=== PATIENT | male | born 1980 | race Caucasian/White ===

== ENCOUNTER 2022-07-28 14:45 | Inpatient (IN) ==
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
[2022-07-28] MEDS ORDERED: HYDROmorphone INJ 1 MG/ML SYRINGE IM STA (16:20)
[2022-07-28] MEDS ORDERED: HYDROmorphone INJ 1 MG/ML SYRINGE IV STA ×2 (16:34→18:26)
[2022-07-28 16:57] LABS: Basophils # (auto) 0.04 K/uL (0-0.2); Basophils % (auto) 0.4 %; Eosinophils # (auto) 0.03 K/uL (0-0.50); Eosinophils % (auto) 0.3 %; Hematocrit (blood only) 43.5 % (40.1-51.0); Hemoglobin 15.2 g/dl (14.0-18.0); Immature Granulocytes % (auto) 0.9 %; Lymphocytes % (auto) 9.8 %; Mean Corpuscular Hemoglobin 30.3 pg (25.0-34.0); Mean Corpuscular Hgb Conc 34.9 g/dL (32.0-36.0); Mean Corpuscular Volume 86.7 fL (80.0-100.0); Mean Platelet Volume 9.4 fL (9.4-12.4); Monocytes # (auto) 1.35 K/uL (0.24-0.82); Monocytes % (auto) 12.1 %; Neutrophils # (auto) 8.57 K/uL (1.4-6.5); Neutrophils % (auto) 76.5 %; Platelet Count 254 K/uL (130-400); RDW Coefficient of Variation 12.6 % (11.5-14.5); RDW Standard Deviation 40.1 fL (36.4-46.3); Red Blood Count 5.02 M/uL (4.63-6.08); White Blood Count 11.19 K/ul (4.8-10.8)
--- NOTE | 2022-07-28 17:17 | CT Scan Report ---
CERVICAL SPINE CT CT DOSE: 457.30 mGycm HISTORY: kicked by horse, upper cervical pain with extension TECHNIQUE: Multiaxial CT images of the cervical spine were performed and reformatted in the sagittal and coronal plane without the use of contrast. A dose lowering technique was utilized adhering to th e principles of ALARA. COMPARISON: None. FINDINGS: No fractures. No subluxation. Prevertebral soft tissues and the C1-C2 interval are intact. No pneumothorax. Subcentimeter nodular densities at the left lung may apex favors scarring. IMPRESSION: No fractures within the cervical spine. ACT 112: Negative or not required by law. Electronically signed by: Ricky Mcneill M.D. 07/28/2022 5:16 PM
[2022-07-28 17:20] LABS: Albumin Globulin Ratio 1.1 (0.9-2); Albumin Level 4.1 gm/dl (3.4-5.0); BUN Creatinine Ratio 18.2 (10-20); Bilirubin,Total 0.8 mg/dl (0.2-1.0); Calcium 9.1 mg/dl (8.5-10.1); Creatinine Clr Calc Pharmacy 82.6 ml/min; Est GFR (African American) 96.1 ml/min; Est GFR (Non-African American) 82.9 ml/min; Globulin 3.8 gm/dl (2.5-4.0); Potassium 3.8 mmol/L (3.5-5.1); Total Protein 7.9 gm/dl (6.0-8.3)
--- NOTE | 2022-07-28 17:25 | CT Scan Report ---
MAXILLOFACIAL CT CT DOSE: 711.41 mGycm HISTORY: kicked by horse. L jaw, swelling under tongue TECHNIQUE: Multiaxial CT images of the maxillofacial region were performed and reformatted in the cor onal plane without the use of contrast. A dose lowering technique was utilized adhering to the princ iplQian. COMPARISON: None. FINDINGS: There are 2 adjacent nondisplaced fractures within the anterior mandible best seen on image 82. Extensive periodontal disease is noted. Moderate mucosal thickening within the right frontal sin us and ethmoid air cells. The visualized cervical spine, skull base, pterygoid plates, nasal bones, l armani papyracea, orbital floors, and zygomatic arches are intact. The orbits are unremarkable. Left m andibular soft tissue swelling with a probable small soft tissue laceration. No soft tissue hematoma identified. There is also mild asymmetric soft tissue swelling within the left nasal/maxillary region . This could be due to an underlying postoperative changes. Prior internal fixation of an old, healed left maxillary anterior wall fracture. IMPRESSION: 1. Nondisplaced fractures near the apex of the mandible. 2. Old posttraumatic/postoperative changes at the anterior wall of the left maxillary sinus. 4. Extensive periodontal disease is noted. ACT 112: Negative or not required by law. Electronically signed by: Ricky Mcneill M.D. 07/28/2022 5:24 PM
[2022-07-28] MEDS ORDERED: AMPICILLIN/SULBACTAM SOD 3,000 MG in 0.9 % SODIUM CHLORIDE 100 ML IV STA (18:57)
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
[2022-07-28] MEDS ORDERED: CEFEPIME 2,000 MG in SYRINGE 0 ML IV STA (19:16)
[2022-07-28] MEDS ORDERED: metroNIDAZOLE 500 MG/100 ML BAG IV STA (19:19)
[2022-07-28] MEDS ORDERED: DIPHTHERIA/TETANUS/PERTUSSIS 0.5 ML SYR/VIAL IM ONE (19:50)
[2022-07-28] MEDS ORDERED: HYDROmorphone INJ 0.5 MG/0.5 ML SYR IV STA (19:53)
[2022-07-28] MEDS ORDERED: ACETAMINOPHEN 1,000 MG/100 ML VIAL IV STA (19:53)
[2022-07-28] MEDS ORDERED: ONDANSETRON INJ 2 MG/ML 2 ML VIAL IV PRN (22:00)
[2022-07-28] MEDS ORDERED: HYDROmorphone INJ 0.5 MG/0.5 ML SYR IV PRN (22:00)
[2022-07-28] MEDS ORDERED: D5W AND 1/2NSS 1,000 ML IV SCH (22:00)
[2022-07-28] MEDS: HYDROmorphone INJ 0.5 MG/0.5 ML SYR IV PRN (22:27)
[2022-07-29] MEDS: HYDROmorphone INJ 0.5 MG/0.5 ML SYR IV PRN ×3 (00:38→05:46)
[2022-07-29] MEDS ORDERED: KETOROLAC TROMETHAMINE 15 MG/ML VIAL IV ONE (02:15)
[2022-07-29] MEDS ORDERED: MoRPHine SULFATE 4 MG/ML 1 ML CARP\\VIAL IV STA (04:03)
[2022-07-29] MEDS: metroNIDAZOLE 500 MG/100 ML BAG IV SCH ×3 (04:38→20:53)
[2022-07-29] MEDS ORDERED: NALOXONE HCL 0.4 MG/1 ML VIAL/CARP IV PRN (05:52)
--- NOTE | 2022-07-29 06:02 | Communication Note ---
Date of Service: July 29, 2022 Was in frequent contact with patient's RN overnight regarding pain control. Unfortunately, despite nearly a total of Dilaudid 4.5mg, morphine 4mg, Toradol 15mg, and APAP 1000mg q8h JAILENE, he continues to have severe, 8-9/10 pain. The pain has not changed in character and is still primarily on the left side of his jaw. While a little groggy, he has remained alert throughout the night without changes in respiratory status. Went to see patient at 0545 given continued, ongoing pain. He reports feeling terrible and not getting any sleep. No new physical exam findings compared to previous. Given the extent of his pain despite minimal improvement and limited options without PO, will transition onto a Dilaudid RN LVN pump - 0.3mg q15m without continuous dosing. He will have EtCO2 monitoring per protocol and is also on telemetry for cardiac monitoring. Discussed with attending physician. Orders entered. Plan d/w RN. Resident Activity Tracking Resident Involvement: Resident Care Provided Care Provided: Adult [facility]
[2022-07-29] MEDS: ACETAMINOPHEN 1,000 MG/100 ML VIAL IV SCH ×3 (06:11→22:33)
[2022-07-29] MEDS: HYDROmorphone PCA 30 MG/30 ML IV PRN ×2 (07:06→21:09)
[2022-07-29] MEDS: SODIUM CHLORIDE 0.9% 1000ML 1,000 ML IV SCH (07:10)
--- NOTE | 2022-07-29 07:10 | Hospitalist Progress Note ---
Date of Service July 29, 2022 Assessment & Plan (1) Facial injury: Plan: 42 yo male PMHx of reported L-sided facial fracture s/p plate placement >10 years ago who presented to [facility] for evaluation of facial pain secondary to being struck in the face by a horse, subsequently found to have L-sided mandibular fractures on CT. There is no evidence of cervical spine injury or neurologic impairment at present, and his airway on exam is patent. Mandibular Fracture secondary to Trauma Secondary to being struck in the face by a horse, with associated brief LOC two days ago. No evidence of cervical spine impairment on imaging or LIBRARY CIRCULATION TECHNICIAN defects on exam. Airway is patent. CT of the face demonstrated nondisplaced fractures near the apex of the mandible, old posttraumatic/postoperative changes at the anterior wall of the left maxillary sinus, and extensive perioral dental disease. NPO D/c cefepime. Abx ppx with Rocephin and flagyl. cont. D5 half-normal saline for maintenance Pain control: Scheduled Tylenol, PARTS SALES MANAGER pump Oral & maxillary surgery consulted: Develop treatment plan which will include extraction of many teeth and open reduction of the mandibular fractures with bilateral bone plates. Future dentures. Set up with general anesthesia in hospital due to complexity of the procedure once the swelling has subsided. (2) Struck by horse, initial encounter: Plan: As above Plan Code: Full code Diet: NPO, D5 half-normal saline Prophylaxis: SCDs Dispo: med tele Admission and Anticipated Discharge Date Admission Date: July 28, 2022 Supervising Physician Co-Signing Physician Notes Attending attestation Pt seen and examined in concert with Dr. Cornejo. In agreement with the documented findings as noted in the resident documentation with any exceptions or additions as noted here. Ongoing jaw pain with traumatic injury and fracture. VS, nursing notes, labs, imaging reviewed. On examination, S1/S2 nl RRR no MCG. CTAB. Abd NT/ND BS+ve Mandibular fx in the setting of trauma - OMFS - impending surgical correction. Continue pain control w/ IV hydromorphone PARTS SALES MANAGER, IVF. Empiric abx as noted prior to surgery for adjustment following as required. Else see resident documentation as noted. Subjective Seen at bedside this morning. Face pain decently controlled on PARTS SALES MANAGER. Denies chest pain, sob, abd pain, N/V. Review of Systems Review of Systems: All systems reviewed & are unremarkable except as noted in HPI & below Physical Exam Physical Exam: General: alert, oriented, and appears in no acute distress. HEENT: NCAT. Sclera are white, anicteric, and without injection. Exam of the left side of the face does reveal significant edema over the left maxilla e xtending down into the left side of his jaw. There is lip swelling appreciated. There is no tongue swelling or airway crowding appreciated. Numerous caries are appreciated throughout the mouth. Neck: supple, no appreciable JVD. Palpation down the cervical spine does not reveal any point tenderness. No paracervical tenderness. Neck range of motion is grossly intact. Cardiac: RRR. S1 and S2 present with no murmurs, rubs, or gallops. Pulmonary: Good respiratory effort with symmetric expansion of the chest. No use of accessory muscles. CTAB. No crackles or wheezes. Abdominal: Normoactive bowel sounds. Abdomen was soft, nondistended, and non- tender to palpation. Extremities: Upper and lower extremities are warm and well perfused. No peripheral edema in the lower extremities bilaterally Neuro: no focal deficits Psych: Behavior is cooperative and appropriate. Affect is WNL. Insight is appropriate. Results & Data Results & Data ([facility]) Vital Signs (Past 12 Hours) Vital Signs Temp Pulse Pulse Resp BP BP Pulse Ox 07/29/22 03:38 36.7 C 81 18 110/71 98 07/29/22 00:10 68 07/28/22 23:02 36.2 C L 73 16 127/85 100 07/28/22 20:00 82 18 126/72 99 07/28/22 19:35 82 18 126/72 99 O2 Del Method 07/29/22 03:38 Room Air 07/29/22 00:10 07/28/22 23:02 Room Air 07/28/22 20:00 Room Air 07/28/22 19:35 Room Air Laboratory Results 07/29/22 07/29/22 07/28/22 Range/Units 08:30 08:30 19:12 WBC 9.95 (4.8-10.8) K/ul RBC 4.42 L (4.63-6.08) M/uL Hgb 13.3 L (14.0-18.0) g/dl Hct 39.0 L (40.1-51.0) % MCV 88.2 (80.0-100.0) fL MCH 30.1 (25.0-34.0) pg MCHC 34.1 (32.0-36.0) g/dL RDW Std Deviation 39.7 (36.4-46.3) fL RDW Coeff of Fadia 12.3 (11.5-14.5) % Plt Count 227 (130-400) K/uL MPV 9.2 L (9.4-12.4) fL Immature Gran % (Auto) 0.9 % Neut % (Auto) 77.3 % Lymph % (Auto) 10.3 % [place] % (Auto) 10.5 % Eos % (Auto) 0.7 % Baso % (Auto) 0.3 % Neut # (Auto) 7.70 H (1.4-6.5) K/uL Lymph # (Auto) 1.02 L (1.2-3.4) K/uL [place] # (Auto) 1.04 H (0.24-0.82) K/uL Eos # (Auto) 0.07 (0-0.50) K/uL Baso # (Auto) 0.03 (0-0.2) K/uL Immature Gran # (Auto) 0.09 H (0.00-0.02) K/uL Sodium 134 L (136-145) mmol/L Potassium 3.8 (3.5-5.1) mmol/L Chloride 101 (98-107) mmol/L Carbon Dioxide 27 (21-32) mmol/L Anion Gap 6 (3-11) BUN 17 (6-23) mg/dl Creatinine 0.89 (0.6-1.4) mg/dl Est Cr Clr Drug Dosing 102.1 ml/min Est GFR ( Amer) 123.1 ml/min Est GFR (Non-Af Amer) 106.2 ml/min BUN/Creatinine Ratio 19.1 (10-20) Glucose 116 H (70-99(Fasting)) mg/dl Calcium 8.5 (8.5-10.1) mg/dl Total Bilirubin 0.8 (0.2-1.0) mg/dl AST 16 (13-39) U/L ALT 20 (7-52) U/L Alkaline Phosphatase 71 (34-104) U/L Total Protein 6.8 (6.0-8.3) gm/dl Albumin 3.4 (3.4-5.0) gm/dl Globulin 3.4 (2.5-4.0) gm/dl Albumin/Globulin Ratio 1.0 (0.9-2) SARS-CoV-2, RNA, NAAT NEGATIVE (NEGATIVE) 07/28/22 Range/Units 16:32 WBC (4.8-10.8) K/ul RBC (4.63-6.08) M/uL Hgb (14.0-18.0) g/dl Hct (40.1-51.0) % MCV (80.0-100.0) fL MCH (25.0-34.0) pg MCHC (32.0-36.0) g/dL RDW Std Deviation (36.4-46.3) fL RDW Coeff of Fadia (11.5-14.5) % Plt Count (130-400) K/uL MPV (9.4-12.4) fL Immature Gran % (Auto) % Neut % (Auto) % Lymph % (Auto) % [place] % (Auto) % Eos % (Auto) % Baso % (Auto) % Neut # (Auto) (1.4-6.5) K/uL Lymph # (Auto) (1.2-3.4) K/uL [place] # (Auto) (0.24-0.82) K/uL Eos # (Auto) (0-0.50) K/uL Baso # (Auto) (0-0.2) K/uL Immature Gran # (Auto) (0.00-0.02) K/uL Sodium 136 (136-145) mmol/L Potassium 3.8 (3.5-5.1) mmol/L Chloride 101 (98-107) mmol/L Carbon Dioxide 25 (21-32) mmol/L Anion Gap 10 (3-11) BUN 20 (6-23) mg/dl Creatinine 1.10 (0.6-1.4) mg/dl Est Cr Clr Drug Dosing 82.6 ml/min Est GFR ( Amer) 96.1 ml/min Est GFR (Non-Af Amer) 82.9 ml/min BUN/Creatinine Ratio 18.2 (10-20) Glucose 118 H (70-99(Fasting)) mg/dl Calcium 9.1 (8.5-10.1) mg/dl Total Bilirubin 0.8 (0.2-1.0) mg/dl AST 22 (13-39) U/L ALT 27 (7-52) U/L Alkaline Phosphatase 82 (34-104) U/L Total Protein 7.9 (6.0-8.3) gm/dl Albumin 4.1 (3.4-5.0) gm/dl Globulin 3.8 (2.5-4.0) gm/dl Albumin/Globulin Ratio 1.1 (0.9-2) SARS-CoV-2, RNA, NAAT (NEGATIVE) Resident Activity Tracking Resident Involvement: Resident Care Provided Care Provided: Adult Hospital Medicine
[2022-07-29] MEDS ORDERED: CEFEPIME 2,000 MG in SYRINGE 0 ML IV SCH (08:00)
--- NOTE | 2022-07-29 08:13 | Oral/Maxillofacial Consult ---
Date of Consultation July 29, 2022 Assessment & Plan (1) Struck by horse, initial encounter: (2) Left facial swelling: (3) Encounter for pre-operative examination: (4) Bilateral open fracture of mandible: (5) Fractured tooth due to trauma without complication: (6) Laceration of face, complicated: History of Present Illness Attending Physician: Levi Nguyen MD History of Present Illness Oral Maxillofacial Surgery Exam--Emergency exam Jaw fracture Present Complaint: Sustained mandibular fractures (anterior mandible ) after being stepped on by a horse with worsening pain over the previous 2 days. I suggested and recommended for IV antibiotics and admission and anticipate surgical intervention in the next few days to allow swelling to subside. Very painful to move jaw secondary to the fractures. Despite the non displaced nature of the fractures the bone move clinically with swallowing and talking causing extreme pain. Patient seen at bedside, reports he has 7/10 pain in the face and felt the brake/pop in 2 places when the injury occurred. 2 days ago. C-spine CT reviewed, patient does not have any tenderness in the posterior neck/spine. No history of heart disease/DM/pulmonary disease. Heart rate regular, lungs are clear, patient is not wheezing, is guarding airway, and is out without airway swelling or uvular deflection. Penicillin allergic with unclear rxn per pt, will treat with cefepime/Flagyl IV. N.p.o., fluids. Oral maxillofacial surgery consulted. Oral Exam: Finding Very poor dentition with many teeth fractured from the accident, tender gingival tissue with deep pocket formation. Teeth are in an abnormal position, fractured and non restorable and removal is clinical indicated. Imaging: MAXILLOFACIAL CT HISTORY: kicked by horse. L jaw, swelling under tongue FINDINGS: There are 2 adjacent nondisplaced fractures within the anterior mandible best seen on image 82. Extensive periodontal disease is noted. Moderate mucosal thickening within the right frontal sinus and ethmoid air cells. The visualized cervical spine, skull base, pterygoid plates, nasal bones, lamina papyracea, orbital floors, and zygomatic arches are intact. The orbits are unremarkable. Left mandibular soft tissue swelling with a probable small soft tissue laceration. No soft tissue hematoma identified. There is also mild asymmetric soft tissue swelling within the left nasal/maxillary region. This could be due to an underlying postoperative changes. Prior internal fixation of an old, healed left maxillary anterior wall fracture. IMPRESSION: 1. Nondisplaced fractures near the apex of the mandible. 2. Old posttraumatic/postoperative changes at the anterior wall of the left maxillary sinus. 4. Extensive periodontal disease is noted. Soft tissue: floor of the mouth is swollen from the trauma tongue, hard/soft palate, posterior pharyngeal area all with in normal limits, Grossly swollen soft tissue and anterior lower jaw area Oral Care: Overall oral care is very poor all teeth are fractured and loose as a result of the accident the upper teeth 5-12 and lower 22-29 are fractured and are non restorable Occlusion: given the many fractured and decayed teeth with the present trauma many if not all of the teeth need to be extracted to prevent any infection given the opened nature of the bilateral anterior mandibular fracture. TMJ exam: Due to trauma and swelling can not open mouth to evaluate the TMJ-severe pain on movement Periodontal exam: Significant evidence of advanced periodontal pathology. Head/Neck exam: Neck is supple, FROM, Able to extend and flex neck w/o difficulty, no masses, no abnormalities, no airway issues, no evidence of sleep apnea. Treatment Plan: Develop treatment plan which will include extraction of many teeth and open reduction of the mandibular fractures with bilateral bone plates Future dentures Set up with general anesthesia in hospital due to complexity of the procedure once the swelling has subsided. I reviewed the treatment plan and consent with the patient. Understanding was expressed. Time was given for questions regarding the surgery, risks and post op care. Discussed alternative to treatment--procedure as planned, Do not do surgery The following teeth are decayed and fractured and removal is indicated KING:all remaining teeth--given difficulty to exam I will make final judgement at the time of surgery Risks discussed: Bleeding,Pain,swelling,infection, dry socket, delayed healing, nerve injury to face,lips,tongue,chin area which could be permanent (rare).Malunion, rejection of the bone plates, scaring, nerve injury, numbness to lower lip, TMJ, jaw stiffness, change in bite (rare), ear pain (referred). Sinus problems like fistula or infection. Need to leave a small root fragment in place to avoid injury to nerve or sinus. Relationship of wisdom teeth to nerve/sinus and risk of jaw fracture. Home care reviewed: Follow up care with Dr Ng. diet=[id number] dental. Discussed activity level, driving/work while on Rx pain Meds. Surgery to be set up today in OR on Jul 29 in the afternoon he is NPO Allergies Allergy/AdvReac Type Severity Reaction Status Date / Time Penicillins Allergy Unknown Verified 07/28/22 19:16 Home Medications Medication Instructions Recorded Confirmed Type amoxicillin 875 mg-potassium 1 tab PO Q12H POST OP JAW FRACTURE 07/30/22 Rx clavulanate 125 mg tablet #20 tabs chlorhexidine gluconate 0.12 % 15 ml mucous membrane BID #473 mL 07/30/22 Rx mouthwash (Peridex) hydrocodone 5 mg-acetaminophen 325 1 tab PO Q4H PRN pain #14 tabs 07/30/22 Rx mg tablet Patient History Medical History Periodontal disease Smokes tobacco daily Surgical History Hx of facial fracture repair Social History Smoking Status: Current some day smoker Tobacco Type: Cigarettes Do You Dip or Chew Tobacco: No; Hx Alcohol Use: No Hx Substance Use: No Preferred Language: Bulgarian Communication Ability: Effective Pattern Drum Maker Required: No Beliefs That Will Affect Care: None Current Living Situation: Alone Feels Safe at Home: Yes Safety Concerns: Feels Safe At This Time Assistive Devices: None Results & Data ([facility]) Vital Signs (Past 12 Hours) Vital Signs Temp Pulse Pulse Resp BP BP Pulse Ox 07/29/22 07:00 07/29/22 07:40 36.7 C 82 18 111/65 98 07/29/22 06:52 71 07/29/22 03:38 36.7 C 81 18 110/71 98 07/29/22 00:10 68 07/28/22 23:02 36.2 C L 73 16 127/85 100 O2 Del Method 07/29/22 07:00 Room Air 07/29/22 07:40 Room Air 07/29/22 06:52 07/29/22 03:38 Room Air 07/29/22 00:10 07/28/22 23:02 Room Air PG Care Time/CCT Total # of Minutes Spent Total Time Spent with Patient: Total time spent is greater than 50% in coordination of care (as documented) at patient's floor/unit and/or counseling patient: Coding Level of Care Code 26876 Inpt Consult Level 3 Diagnoses Struck by horse, initial encounter W55.12XA Left facial swelling R22.0 Encounter for pre-operative examination Z01.818 Bilateral open fracture of mandible S02.609B Fractured tooth due to trauma without complication S02.5XXA Laceration of face, complicated S01.81XA
[2022-07-29 08:47] LABS: Basophils # (auto) 0.03 K/uL (0-0.2); Basophils % (auto) 0.3 %; Eosinophils # (auto) 0.07 K/uL (0-0.50); Eosinophils % (auto) 0.7 %; Hemoglobin 13.3 g/dl (14.0-18.0); Immature Granulocytes # (auto) 0.09 K/uL (0.00-0.02); Immature Granulocytes % (auto) 0.9 %; Lymphocytes # (auto) 1.02 K/uL (1.2-3.4); Lymphocytes % (auto) 10.3 %; Mean Corpuscular Hemoglobin 30.1 pg (25.0-34.0); Mean Corpuscular Hgb Conc 34.1 g/dL (32.0-36.0); Mean Corpuscular Volume 88.2 fL (80.0-100.0); Mean Platelet Volume 9.2 fL (9.4-12.4); Monocytes # (auto) 1.04 K/uL (0.24-0.82); Monocytes % (auto) 10.5 %; Neutrophils % (auto) 77.3 %; Platelet Count 227 K/uL (130-400); RDW Coefficient of Variation 12.3 % (11.5-14.5); RDW Standard Deviation 39.7 fL (36.4-46.3); Red Blood Count 4.42 M/uL (4.63-6.08); White Blood Count 9.95 K/ul (4.8-10.8)
[2022-07-29] MEDS ORDERED: DOCUSATE SODIUM 100 MG CAP PO SCH (09:00)
[2022-07-29 09:11] LABS: Albumin Level 3.4 gm/dl (3.4-5.0); BUN Creatinine Ratio 19.1 (10-20); Bilirubin,Total 0.8 mg/dl (0.2-1.0); Calcium 8.5 mg/dl (8.5-10.1); Creatinine Clr Calc Pharmacy 102.1 ml/min; Est GFR (African American) 123.1 ml/min; Est GFR (Non-African American) 106.2 ml/min; Globulin 3.4 gm/dl (2.5-4.0); Potassium 3.8 mmol/L (3.5-5.1); Total Protein 6.8 gm/dl (6.0-8.3)
[2022-07-29] MEDS ORDERED: CHLORHEXIDINE GLUCONATE 0.12% 480 ML MT PRN (10:07)
[2022-07-29] MEDS: cefTRIAXone SODIUM 2,000 MG in DEXTROSE 5% 50 ML IV SCH (10:36)
[2022-07-29] MEDS ORDERED: CHLOROPROCAINE HCL 3% 20 ML VIAL ONE (14:23)
[2022-07-29] MEDS ORDERED: LIDOCAINE 2% JELLY 5 ML TUBE EXT ONE (14:25)
[2022-07-29] MEDS ORDERED: SUGAMMADEX SODIUM 200 MG/2 ML VIAL IV ONE (14:26)
[2022-07-29] MEDS ORDERED: MIDAZOLAM HCL 1 MG/ML 2ML VIAL ONE (14:28)
[2022-07-29] MEDS ORDERED: fentaNYL citrate 100 MCG/2 ML VIAL ONE (14:28)
[2022-07-29] MEDS ORDERED: LIDOCAINE 2%/EPINEPHRINE 1:100,000 20ML INFIL ONE (15:11)
[2022-07-29] MEDS ORDERED: TRIAMCINOLONE ACET 0.1% OINT 15 GM TUBE ONE (15:11)
[2022-07-29] MEDS ORDERED: BUPIVACAINE/EPINEPHRINE 0.5% 1:200,000 1.8 ML CARP ONE (15:11)
[2022-07-29] MEDS ORDERED: PHENYLEPHRINE 100MCG/ML 5ML SYR IV PRN (15:17)
[2022-07-29] MEDS ORDERED: ePHEDrine sulfate 50 MG/ML AMP IV PRN (15:17)
[2022-07-29] MEDS ORDERED: HYDROmorphone INJ 2 MG/ML SYR/VIAL IV PRN (15:17)
[2022-07-29] MEDS ORDERED: MEPERIDINE HCL 25 MG/ML CARP/VIAL IV PRN (15:17)
[2022-07-29] MEDS ORDERED: LABETALOL HCL IV 5 MG/ML 20ML IV PRN (15:17)
[2022-07-29] MEDS ORDERED: ONDANSETRON INJ 2 MG/ML 2 ML VIAL IV PRN (15:17)
[2022-07-29] MEDS ORDERED: ATROPINE SULFATE 0.1 MG/ML 10ML SYR IV PRN (15:17)
--- NOTE | 2022-07-29 15:19 | Anesthesiology Consultation ---
Date of Service July 29, 2022 Assessment & Plan (1) Encounter for pre-operative examination: Chart Review Chart Review: Acceptable Risk for Surgery and Patient NOT seen in Pre Admission Testing Consults Requested none History Surgery Operation Date: 07/29/22 10:50 Proposed Procedures p Open Reduction Lower Jaw Fracture, - Joe R Ng, DMD s Multiple Teeth Extraction - Joe Headley Ng, DMD Height/Weight Height: 5 ft 7 in Weight: 66.224 kg Allergies Allergy/AdvReac Type Severity Reaction Status Date / Time Penicillins Allergy Unknown Verified 07/28/22 19:16 Medications Active Medications Generic Name Dose Route Start Last Admin Trade Name Freq PRN Reason Stop Dose Admin Docusate Sodium 100 mg 07/29/22 09:00 07/29/22 07:53 Docusate Sodium 100 Mg Cap PO 08/12/22 08:59 Not Given BID JAILENE Hydromorphone HCl 30 mg 07/29/22 05:52 07/29/22 07:06 Hydromorphone Cheesemaking Laborer 30 Mg/30 Ml IV 08/12/22 05:51 30 mg PRN PRN Administration PREPARED FOODS SERVICE TEAM MEMBER Pain Titration Protocol Acetaminophen 1,000 mg in 100 mls @ 400 mls/hr 07/29/22 06:00 07/29/22 13:37 Ofirmev IV 08/01/22 05:59 Infused Q8H JAILENE Infusion Metronidazole 500 mg in 100 mls @ 100 mls/hr 07/29/22 04:00 07/29/22 13:18 Flagyl IV 08/05/22 03:59 Infused Q8H JAILENE Infusion Sodium Chloride 1,000 mls @ 15 mls/hr 07/29/22 06:00 07/29/22 07:10 Nss 1000ml IV 08/12/22 05:52 15 mls/hr .Q24H JAILENE Administration Ceftriaxone Sodium 2,000 mg/ 70 mls @ 100 mls/hr 07/29/22 10:15 07/29/22 11:24 Dextrose IV 08/05/22 10:14 Infused DAILY JAILENE Infusion Protocol NPO Date Last Intake of Fluids: 07/28/22 Time Last Intake of Fluids: 19:00 Date Last Intake of Solids: 07/26/22 Time Last Intake of Solids: 13:00 Past Medical History Medical History Periodontal disease Smokes tobacco daily Past Surgical History Surgical History Hx of facial fracture repair Social History Smoking Status: Current some day smoker tobacco type: cigarettes Do You Dip or Chew Tobacco: No Hx Alcohol Use: No Hx Substance Use: No Physical Exam Vital Signs Last Vital Signs Temp 36.7 C 07/29/22 14:53 Pulse 80 07/29/22 14:53 Resp 18 07/29/22 14:53 BP 122/73 07/29/22 14:53 Pulse Ox 98 07/29/22 14:53 O2 Del Method 07/29/22 14:53 Testing Laboratory Results 07/29/22 08:30 07/29/22 08:[address] CT DOSE: 711.41 mGycm HISTORY: kicked by horse. L jaw, swelling under tongue TECHNIQUE: Multiaxial CT images of the maxillofacial region were performed and reformatted in the coronal plane without the use of contrast. A dose lowering technique was utilized adhering to the principles of ALARA. COMPARISON: None. FINDINGS: There are 2 adjacent nondisplaced fractures within the anterior mandible best seen on image 82. Extensive periodontal disease is noted. Moderate mucosal thickening within the right frontal sinus and ethmoid air cells. The visualized cervical spine, skull base, pterygoid plates, nasal bones, lamina papyracea, orbital floors, and zygomatic arches are intact. The orbits are unremarkable. Left mandibular soft tissue swelling with a probable small soft tissue laceration. No soft tissue hematoma identified. There is also mild asymmetric soft tissue swelling within the left nasal/maxillary region. This could be due to an underlying postoperative changes. Prior internal fixation of an old, healed left maxillary anterior wall fracture. IMPRESSION: 1. Nondisplaced fractures near the apex of the mandible. 2. Old posttraumatic/postoperative changes at the anterior wall of the left maxillary sinus. 4. Extensive periodontal disease is noted. ACT 112: Negative or not required by law. Electronically signed by: Ricky Mcneill M.D. 07/28/2022 5:24 PM Dictated:07/28/221716 Transcribed: 07/28/221716 CERVICAL SPINE CT CT DOSE: 457.30 mGycm HISTORY: kicked by horse, upper cervical pain with extension TECHNIQUE: Multiaxial CT images of the cervical spine were performed and reformatted in the sagittal and coronal plane without the use of contrast. A dose lowering technique was utilized adhering to the principles of ALARA. COMPARISON: None. FINDINGS: No fractures. No subluxation. Prevertebral soft tissues and the C1-C2 interval are intact. No pneumothorax. Subcentimeter nodular densities at the left lung may apex favors scarring. IMPRESSION: No fractures within the cervical spine. ACT 112: Negative or not required by law. Electronically signed by: Ricky Mcneill M.D. 07/28/2022 5:16 PM Dictated:07/28/22 170 Transcribed: 07/28/22 170
--- NOTE | 2022-07-29 15:47 | History & Physical Bridge Note ---
Date of Service July 29, 2022 History & Physical Bridge Note I have examined the patient, reviewed the History & Physical and in the interval since the performance of the History & Physical I have noted the following changes of clinical significance: no changes noted OK for surgical procedures this afternoon
[2022-07-29] MEDS ORDERED: LIDOCAINE 2% MPF LOCAL 5 ML VIAL INFIL ONE (17:09)
[2022-07-29] MEDS ORDERED: GLYCOPYRROLATE 0.2 MG/ML VIAL ONE (17:09)
[2022-07-29] MEDS ORDERED: ONDANSETRON INJ 2 MG/ML 2 ML VIAL ONE (17:09)
[2022-07-29] MEDS ORDERED: NEOSTIGMINE METHYLSULFATE 1 MG/ML 10ML VIAL ONE (17:09)
[2022-07-29] MEDS ORDERED: DEXAMETHASONE SOD INJ 4 MG/ML VIAL ONE (17:09)
[2022-07-29] MEDS ORDERED: PROPOFOL IV EMULSION 10 MG/ML 20 ML VIAL IV ONE (17:09)
[2022-07-29] MEDS ORDERED: KETOROLAC 30 MG/ML VIAL ONE (18:50)
[2022-07-29] MEDS ORDERED: OXYMETAZOLINE 0.05% 30 ML BTL PRN (19:25)
[2022-07-29] MEDS: fentaNYL citrate 100 MCG/2 ML VIAL IV PRN ×4 (19:33→19:48)
--- NOTE | 2022-07-29 19:35 | Post Operative Brief Note ---
PG Immediate Post Op with CF Date of Surgery July 29, 2022 Pre & Post Diagnosis Operation Date: 07/29/22 10:50 Pre-Op Diagnosis: Extensive Facial Injury Post-Op Diagnosis: Extensive Facial Injury I identified the patient and participated in the time-out.: Yes Procedure Operation Date: 07/29/22 10:50 Actual Procedures p Open Reduction Lower Jaw Fracture(Bilateral) - Joe Ng DMD s Multiple Teeth Extraction(Not Applicable) - Joe Ng DMD Surgeon Joe Ng DMD Automatic Presser none Estimated Blood Loss 100 Findings Consistent with Post-Op Diagnosis complex bilateral mandibular fractured multiply fractured teeth Specimens Specimen Description: none per surgeon Anesthesia Type General Complications none
--- NOTE | 2022-07-29 19:53 | XRay Report ---
XR mandible <4V CLINICAL HISTORY: Status Post-Op Surgery AP Mandibular and Jaw View COMPARISON: Facial bone CT July 28, 2022. FINDINGS: Previous internal fixation of the anterior wall of the left maxillary sinus is incidentall y noted. There are expected findings following internal fixation of the mandibular fractures. Fractur es appear to be in anatomic alignment. Hardware is intact. There are no unexpected radiopaque foreign bodies. IMPRESSION: Expected findings following internal fixation of the mandibular fractures. ACT 112: Negative or not required by law. Electronically signed by: Adolfo Brock M.D. 07/29/2022 7:52 PM
--- NOTE | 2022-07-29 20:11 | Anesthesiology Progress Note ---
Date of Service July 29, 2022 Anesthesia Post Procedure Vital Signs Vital Signs: Temp Pulse Pulse Pulse Resp BP BP 07/29/22 20:05 90 15 124/73 07/29/22 19:55 36.7 C 95 H 12 129/76 07/29/22 19:45 94 H 14 128/74 07/29/22 19:35 96 H 15 133/73 07/29/22 19:26 36.9 C 100 H 24 134/75 07/29/22 15:00 60 07/29/22 14:53 36.7 C 80 18 122/73 07/29/22 11:03 36.6 C 75 18 115/81 07/29/22 07:00 07/29/22 07:40 36.7 C 82 18 111/65 07/29/22 06:52 71 07/29/22 03:38 36.7 C 81 18 110/71 07/29/22 00:10 68 07/28/22 23:02 36.2 C L 73 16 127/85 Pulse Ox O2 Del Method O2 Flow Rate 07/29/22 20:05 96 Room Air 07/29/22 19:55 97 Room Air 07/29/22 19:45 96 Room Air 07/29/22 19:35 100 Oxymask 5 07/29/22 19:26 100 Oxymask 5 07/29/22 15:00 07/29/22 14:53 98 Room Air 07/29/22 11:03 98 Room Air 07/29/22 07:00 Room Air 07/29/22 07:40 98 Room Air 07/29/22 06:52 07/29/22 03:38 98 Room Air 07/29/22 00:10 07/28/22 23:02 100 Room Air Pain Intensity Left Jaw: Pain Intensity: 3 Transfer of Care Handoff Completed per policy Notes Mental Status: alert / awake / arousable Patient Amnestic to Procedure: Yes Nausea / Vomiting: adequately controlled Pain: adequately controlled Airway Patency, RR, SpO2: stable & adequate BP & HR: stable & adequate Hydration State: stable & adequate Anesthetic Complications: no major complications apparent and Pt Satisfied with anesthetic care
[2022-07-29] MEDS: KETOROLAC 30 MG/ML VIAL IV SCH (20:44)
[2022-07-29] MEDS: dexAMETHasone 6 MG in SYRINGE 0 ML IV SCH (20:45)
[2022-07-29] MEDS ORDERED: CHLORHEXIDINE GLUCONATE 0.12% 480 ML MT SCH (21:00)
[2022-07-29] MEDS: DOCUSATE SODIUM SYRUP 100 MG/10 ML UDC PO SCH ×2 (22:07→22:19)
[2022-07-30] MEDS: dexAMETHasone 6 MG in SYRINGE 0 ML IV SCH ×3 (01:51→12:50)
[2022-07-30] MEDS: KETOROLAC 30 MG/ML VIAL IV SCH ×3 (01:51→12:49)
[2022-07-30] MEDS: metroNIDAZOLE 500 MG/100 ML BAG IV SCH ×2 (04:04→11:48)
[2022-07-30] MEDS: SODIUM CHLORIDE 0.9% 1000ML 1,000 ML IV SCH (05:44)
[2022-07-30] MEDS: ACETAMINOPHEN 1,000 MG/100 ML VIAL IV SCH ×2 (05:47→12:51)
[2022-07-30] MEDS: DOCUSATE SODIUM SYRUP 100 MG/10 ML UDC PO SCH (07:24)
[2022-07-30] MEDS: cefTRIAXone SODIUM 2,000 MG in DEXTROSE 5% 50 ML IV SCH (07:28)
[2022-07-30] MEDS ORDERED: ALUMINUM/MAGNESIUM/SIMETH (MAALOX MAX) 30 ML UDC PO PRN (07:29)
--- NOTE | 2022-07-30 07:30 | Hospitalist Progress Note ---
Date of Service July 30, 2022 Assessment & Plan (1) Facial injury: Plan: 42 yo male PMHx of reported L-sided facial fracture s/p plate placement >10 years ago who presented to [facility] for evaluation of facial pain secondary to being struck in the face by a horse, subsequently found to have L-sided mandibular fractures on CT. There is no evidence of cervical spine injury or neurologic impairment at present, and his airway on exam is patent. Mandibular Fracture secondary to Trauma Secondary to being struck in the face by a horse, with associated brief LOC two days ago. No evidence of cervical spine impairment on imaging or CARD ROOM MANAGER defects on exam. Airway is patent. CT of the face demonstrated nondisplaced fractures near the apex of the mandible, old posttraumatic/postoperative changes at the anterior wall of the left maxillary sinus, and extensive perioral dental disease. D/c cefepime. Abx ppx with Rocephin and flagyl. Pain control: Tylenol ron, toradol ron, MANAGER SPEECH pump - cont. IV dexamethasone Oral & maxillary surgery consulted: Develop treatment plan which will include extraction of many teeth and open reduction of the mandibular fractures with bilateral bone plates. Future dentures. Set up with general anesthesia in hospital due to complexity of the procedure once the swelling has subsided. (2) Struck by horse, initial encounter: Plan: As above Plan Code status: Full Diet: clear liquid Prophylaxis: SCDs Dispo: med tele Admission and Anticipated Discharge Date Admission Date: July 28, 2022 Subjective Seen at bedside this morning. Face pain decently controlled on MANAGER SPEECH. Denies chest pain, sob, abd pain, N/V. Review of Systems Review of Systems: All systems reviewed & are unremarkable except as noted in HPI & below Physical Exam Physical Exam: General: alert, oriented, and appears in no acute distress. HEENT: NCAT. Sclera without injection. Left side face with significant edema over the left maxilla extending down into the left side of his jaw. +lip swelling. No tongue swelling or airway crowding appreciated. Numerous caries throughout the mouth. Neck: supple, no appreciable JVD. Palpation down the cervical spine does not reveal any point tenderness. No paracervical tenderness. Neck range of motion is grossly intact. Cardiac: RRR. S1 and S2 present with no murmurs, rubs, or gallops. Pulmonary: Good respiratory effort with symmetric expansion of the chest. No use of accessory muscles. CTAB. No crackles or wheezes. Abdominal: Normoactive bowel sounds. Abdomen was soft, nondistended, and non- tender to palpation. Extremities: Upper and lower extremities are warm and well perfused. No periph eral edema in the lower extremities bilaterally Neuro: no focal deficits Psych: Cooperative. Affect is WNL. Insight is appropriate. Results & Data Results & Data ([facility]) Vital Signs (Past 12 Hours) Vital Signs Temp Pulse Pulse Pulse Resp BP Pulse Ox 07/30/22 07:00 85 07/30/22 03:04 36.6 C 98 H 20 121/83 99 07/30/22 00:48 07/29/22 23:33 76 07/29/22 23:00 36.7 C 84 10 L 122/76 97 07/29/22 22:15 36.1 C L 81 12 132/77 97 07/29/22 21:06 36.5 C 79 12 126/74 97 07/29/22 20:20 37 C 91 H 14 122/76 95 07/29/22 20:15 97 H 13 128/78 97 07/29/22 20:05 90 15 124/73 96 07/29/22 19:55 36.7 C 95 H 12 129/76 97 07/29/22 19:45 94 H 14 128/74 96 07/29/22 19:35 96 H 15 133/73 100 07/29/22 19:26 36.9 C 100 H 24 134/75 100 O2 Del Method O2 Flow Rate 07/30/22 07:00 07/30/22 03:04 Room Air 07/30/22 00:48 Room Air 07/29/22 23:33 07/29/22 23:00 Room Air 07/29/22 22:15 Room Air 07/29/22 21:06 Room Air 07/29/22 20:20 Room Air 07/29/22 20:15 Room Air 07/29/22 20:05 Room Air 07/29/22 19:55 Room Air 07/29/22 19:45 Room Air 07/29/22 19:35 Oxymask 5 07/29/22 19:26 Oxymask 5
[2022-07-30 08:18] LABS: Hematocrit (blood only) 39.8 % (40.1-51.0); Hemoglobin 13.6 g/dl (14.0-18.0); Mean Corpuscular Hemoglobin 30.1 pg (25.0-34.0); Mean Corpuscular Hgb Conc 34.2 g/dL (32.0-36.0); Mean Corpuscular Volume 88.1 fL (80.0-100.0); Mean Platelet Volume 9.3 fL (9.4-12.4); Platelet Count 330 K/uL (130-400); RDW Coefficient of Variation 11.9 % (11.5-14.5); RDW Standard Deviation 38.5 fL (36.4-46.3); Red Blood Count 4.52 M/uL (4.63-6.08); White Blood Count 11.73 K/ul (4.8-10.8)
[2022-07-30 08:34] LABS: BUN Creatinine Ratio 26.9 (10-20); Calcium 8.4 mg/dl (8.5-10.1); Creatinine Clr Calc Pharmacy 135.7 ml/min; Est GFR (African American) 138.3 ml/min; Est GFR (Non-African American) 119.3 ml/min; Potassium 4.2 mmol/L (3.5-5.1)
[2022-07-30 08:36] LABS: Basophils # (auto) 0.02 K/uL (0-0.2); Basophils % (auto) 0.2 %; Immature Granulocytes # (auto) 0.11 K/uL (0.00-0.02); Immature Granulocytes % (auto) 0.9 %; Lymphocytes # (auto) 0.69 K/uL (1.2-3.4); Lymphocytes % (auto) 5.9 %; Monocytes # (auto) 0.12 K/uL (0.24-0.82); Neutrophils # (auto) 10.79 K/uL (1.4-6.5)
[2022-07-30] MEDS ORDERED: HYDROmorphone INJ 1 MG/ML SYRINGE IV PRN (11:01)
--- NOTE | 2022-07-30 12:49 | Oral/Maxillofacial Progress Nt ---
Date of Service July 30, 2022 Assessment & Plan Admission and Anticipated Discharge Date Admission Date: July 28, 2022 Subjective Trauma surgery post op note at 24 hours Excellent result, ROM improving Sutures and dressings in place Tissue tone, gingival tissue--excellent Oral extraction sites -look great Post op X-Rays excellent No nasal congestion or bleeding, septum well positioned. No sinus issues Facial alignment excellent Reviewed post op care--diet, oral care,follow up, wound care OK FOR DISCHARGE TODAY Next appointment set up for: Aug 08 at 9:30 am Overall excellent result from recent trauma surgery repair RTC for continued follow up Results & Data ([facility]) Vital Signs (Past 12 Hours) Vital Signs Temp Pulse Pulse Resp BP Pulse Ox O2 Del Method 07/30/22 11:54 36.6 C 84 16 111/69 98 Room Air 07/30/22 08:32 36.4 C L 70 16 124/80 98 Room Air 07/30/22 07:00 85 07/30/22 03:04 36.6 C 98 H 20 121/83 99 Room Air 07/30/22 00:48 Room Air PG Care Time/CCT Total # of Minutes Spent Total Time Spent with Patient: Total time spent is greater than 50% in coordination of care (as documented) at patient's floor/unit and/or counseling patient: Coding Level of Care Code None
--- NOTE | 2022-07-30 15:10 | Discharge Summary ---
Date of Service July 30, 2022 Admission HPI Per Admitting Provider This is a 42-year-old male with no reported past medical history who presented to [facility] for evaluation of facial pain. Patient states that approximately 2 days ago, he was out with a horse when it did struck him in the left side of his face. He said that he may have lost consciousness briefly for a couple of seconds, but was able to walk away shortly thereafter. Since that time, he says the left side of his face has been very painful, specifically his jaw. He has had significant issues with eating and drinking. He denies any shortness of breath at night. Does endorse some minor bleeding that would happen throughout the night, but never to a point that would wake him up. He denies any neck pain. Denies any blurry vision. Denies any nausea or vomiting. Denies any weakness in his arms or legs. He was with his nephew today, who accidentally kneed him on the left side of his face. This caused significant pain. As a result, he did report to the emergency room for evaluation. He denies any alcohol or substance use. Does endorse smoking 1 to 2 packs/day, but is interested in quitting. He does tell me that he had a metal plate inserted right below his left eye due to facial injuries over 10 years ago. In the ED, patient was found to have normal vital signs and protecting his airway.His labs demonstrated a mild leukocytosis with left shift, normal chemistries.Cervical spine CT did not demonstrate any fractures. CT of the face demonstrated nondisplaced fractures near the apex of the mandible, old posttraumatic/postoperative changes at the anterior wall of the left maxillary sinus, and extensive perioral dental disease.In the ED, he was given 2 mg of Dilaudid as well as cefepime Flagyl. ----- This documentation was created utilizing dictation software. As such, syntax, grammatical, and word-choice errors may be present. Notes are screened prior to submission in an attempt to reduce these errors. If there are any questions or concerns, please contact the author directly for clarification. Principal Diagnosis s/p open reduction mandible fracture Discharge Exam General: alert, oriented, and appears in no acute distress. HEENT: NCAT. Sclera without injection. Left side of the face does reveal significant edema over the left maxilla extending down into the left side of his jaw. Liip swelling appreciated. No tongue swelling or airway crowding appreciated. Numerous caries are appreciated throughout the mouth. Neck:supple, no appreciable JVD. Cardiac: RRR. S1 and S2 present with no murmurs, rubs, or gallops. Pulmonary: Good respiratory effort with symmetric expansion of the chest. No use of accessory muscles. CTAB. No crackles or wheezes. Abdominal: Normoactive bowel sounds. Abdomen was soft, nondistended, and non- tender to palpation. Extremities: Upper and lower extremities are warm and well perfused. No peripheral edema in the lower extremities bilaterally Neuro: no focal deficits Psych: Cooperative. Discharge Data Allergies Allergy/AdvReac Type Severity Reaction Status Date / Time Penicillins Allergy Unknown Verified 07/28/22 19:16 Consultations 07/28/22 19:04 Consult Oromaxillofacial Surgery Routine Procedures Performed Operation Date: 07/29/22 10:50 Actual Procedures p Open Reduction Lower Jaw Fracture(Bilateral) - Joe Ng DMD s Multiple Teeth Extraction(Not Applicable) - Joe Ng DMD Ordered Studies Laboratory Results WBC 11.73 K/ul (4.8-10.8) H 07/30/22 07:37 RBC 4.52 M/uL (4.63-6.08) L 07/30/22 07:37 Hgb 13.6 g/dl (14.0-18.0) L 07/30/22 07:37 Hct 39.8 % (40.1-51.0) L 07/30/22 07:37 MCV 88.1 fL (80.0-100.0) 07/30/22 07:37 MCH 30.1 pg (25.0-34.0) 07/30/22 07:37 MCHC 34.2 g/dL (32.0-36.0) 07/30/22 07:37 RDW Std Deviation 38.5 fL (36.4-46.3) 07/30/22 07:37 RDW Coeff of Fadia 11.9 % (11.5-14.5) 07/30/22 07:37 Plt Count 330 K/uL (130-400) 07/30/22 07:37 MPV 9.3 fL (9.4-12.4) L 07/30/22 07:37 Immature Gran % (Auto) 0.9 % 07/30/22 07:37 Neut % (Auto) 92.0 % 07/30/22 07:37 Lymph % (Auto) 5.9 % 07/30/22 07:37 Nuckolls % (Auto) 1.0 % 07/30/22 07:37 Eos % (Auto) 0.0 % 07/30/22 07:37 Baso % (Auto) 0.2 % 07/30/22 07:37 Neut # (Auto) 10.79 K/uL (1.4-6.5) H 07/30/22 07:37 Lymph # (Auto) 0.69 K/uL (1.2-3.4) L 07/30/22 07:37 Nuckolls # (Auto) 0.12 K/uL (0.24-0.82) L 07/30/22 07:37 Eos # (Auto) 0.00 K/uL (0-0.50) 07/30/22 07:37 Baso # (Auto) 0.02 K/uL (0-0.2) 07/30/22 07:37 Immature Gran # (Auto) 0.11 K/uL (0.00-0.02) H 07/30/22 07:37 Sodium 134 mmol/L (136-145) L 07/30/22 07:37 Potassium 4.2 mmol/L (3.5-5.1) 07/30/22 07:37 Chloride 101 mmol/L (98-107) 07/30/22 07:37 Carbon Dioxide 26 mmol/L (21-32) 07/30/22 07:37 Anion Gap 7 (3-11) 07/30/22 07:37 BUN 18 mg/dl (6-23) 07/30/22 07:37 Creatinine 0.67 mg/dl (0.6-1.4) 07/30/22 07:37 Est Cr Clr Drug Dosing 135.7 ml/min 07/30/22 07:37 Est GFR ( Amer) 138.3 ml/min 07/30/22 07:37 Est GFR (Non-Af Amer) 119.3 ml/min 07/30/22 07:37 BUN/Creatinine Ratio 26.9 (10-20) H 07/30/22 07:37 Glucose 176 mg/dl (70-99(Fasting)) H 07/30/22 07:37 Calcium 8.4 mg/dl (8.5-10.1) L 07/30/22 07:37 Total Bilirubin 0.8 mg/dl (0.2-1.0) 07/29/22 08:30 AST 16 U/L (13-39) 07/29/22 08:30 ALT 20 U/L (7-52) 07/29/22 08:30 Alkaline Phosphatase 71 U/L (34-104) 07/29/22 08:30 Total Protein 6.8 gm/dl (6.0-8.3) 07/29/22 08:30 Albumin 3.4 gm/dl (3.4-5.0) 07/29/22 08:30 Globulin 3.4 gm/dl (2.5-4.0) 07/29/22 08:30 Albumin/Globulin Ratio 1.0 (0.9-2) 07/29/22 08:30 SARS-CoV-2, RNA, NAAT NEGATIVE (NEGATIVE) 07/28/22 19:[address] 07/28/22 16:[address] DOSE: 457.30 mGycm HISTORY: kicked by horse, upper cervical pain with extension TECHNIQUE: Multiaxial CT images of the cervical spine were performed and reformatted in the sagittal and coronal plane without the use of contrast. A dose lowering technique was utilized adhering to the principles of ALARA. COMPARISON: None. FINDINGS: No fractures. No subluxation. Prevertebral soft tissues and the C1-C2 interval are intact. No pneumothorax. Subcentimeter nodular densities at the left lung may apex favors scarring. IMPRESSION: No fractures within the cervical spine. ACT 112: Negative or not required by law. Electronically signed by: Ricky Mcneill M.D. 07/28/2022 5:[address] 07/28/22 16:[address] DOSE: 711.41 mGycm HISTORY: kicked by horse. L jaw, swelling under tongue TECHNIQUE: Multiaxial CT images of the maxillofacial region were performed and reformatted in the coronal plane without the use of contrast. A dose lowering technique was utilized adhering to the principles of ALARA. COMPARISON: None. FINDINGS: There are 2 adjacent nondisplaced fractures within the anterior mandible best seen on image 82. Extensive periodontal disease is noted. Moderate mucosal thickening within the right frontal sinus and ethmoid air cells. The visualized cervical spine, skull base, pterygoid plates, nasal bones, lamina p apyracea, orbital floors, and zygomatic arches are intact. The orbits are unremarkable. Left mandibular soft tissue swelling with a probable small soft tissue laceration. No soft tissue hematoma identified. There is also mild asymmetric soft tissue swelling within the left nasal/maxillary region. This could be due to an underlying postoperative changes. Prior internal fixation of an old, healed left maxillary anterior wall fracture. IMPRESSION: 1. Nondisplaced fractures near the apex of the mandible. 2. Old posttraumatic/postoperative changes at the anterior wall of the left maxillary sinus. 4. Extensive periodontal disease is noted. ACT 112: Negative or not required by law. Electronically signed by: Ricky Mcneill M.D. 07/28/2022 5:24 PM Mandible X-Ray 07/29/22 19:25 XR mandible <4V CLINICAL HISTORY: Status Post-Op Surgery AP Mandibular and Jaw View COMPARISON: Facial bone CT July 28, 2022. FINDINGS: Previous internal fixation of the anterior wall of the left maxillary sinus is incidentally noted. There are expected findings following internal fixation of the mandibular fractures. Fractures appear to be in anatomic alig nment. Hardware is intact. There are no unexpected radiopaque foreign bodies. IMPRESSION: Expected findings following internal fixation of the mandibular fractures. ACT 112: Negative or not required by law. Electronically signed by: Adolfo Brock M.D. 07/29/2022 7:52 PM Hospital Course (1) Facial injury: 42 yo male PMHx of reported L-sided facial fracture s/p plate placement >10 years ago who presented to [facility] for evaluation of facial pain secondary to being struck in the face by a horse, subsequently found to have L-sided mandibular fractures on CT. There is no evidence of cervical spine injury or neurologic impairment at present, and his airway on exam is patent. Mandibular Fracture secondary to Trauma Secondary to being struck in the face by a horse, with associated brief LOC two days ago. No evidence of cervical spine impairment on imaging or CUSTOMER PROGRAM SPECIALIST defects on exam. Airway is patent. CT of the face demonstrated nondisplaced fractures near the apex of the mandible, old posttraumatic/postoperative changes at the anterior wall of the left maxillary sinus, and extensive perioral dental disease. NPO D/c cefepime. Abx ppx with Rocephin and flagyl, d/c'd. Pain control: Scheduled Tylenol. TRUCK SALES REPRESENTATIVE pump d/c'd. Oral & maxillary surgery consulted: Develop treatment plan which will include extraction of many teeth and open reduction of the mandibular fractures with bilateral bone plates. Future dentures. Set up with general anesthesia in hospital due to complexity of the procedure once the swelling has subsided. - has previous vicodin script at home. Pain control otherwise with tylenol/ibuprofen. - advance diet as tolerated - rx clindamycin x7 days for abx ppx per surgery - f/u pcp, oral/maxillary surgery (2) Struck by horse, initial encounter: Total Time Total Time Spent Total Time Spent (In Minutes): 30 Discharge Plan Discharge Items Patient Disposition: Home - Self-Care Reason For Visit: EXTENSIVE FACIAL INJURY Discharge Diagnosis: s/p open reduction mandible fracture Condition on Discharge: Fair Activity: Per Instructions section Lifting: Gradually increase as tolerated Bathing: No limitations Exercise/Sports: Wait until after follow-up appointment Driving/Machine Use: Resume 3 days after discharge Weightbearing: Full weightbearing Non-emergency contact: Surgeon Call non-emergency contact if: you have any medication questions, your symptoms worsen, your pain is worsening, your temperature is above 101.5, your wound has increased redness, your wound has increased drainage and your wound pain has increased Follow-up/Referrals: Joe Ng DMD [Physician] - 08/08/22 9:30 am PCP,NO [Primary Care Provider] - Diet: Full liquid and Clear liquid Diet Texture: Pureed (blended smooth) Diet Comment: No chewing only soft foods for now Addtl Attending Provider Instructions: GENERAL POST-OPERATIVE INSTRUCTIONS FOR PATIENTS HAVING JAW SURGERY POST-OP INSTRUCTIONS POST OP APPOINTMENT -- ThursdayAUGUST 08 AT 9:30 AM---OFFICE [address] BLEEDING: Will be under control by the time you leave our operating room. Some oozing or b lood-tinged saliva may persist for up to 24 hours. Should excessive bleeding occur call the office or Dr. Ng. Expect nasal oozing for a few days. Light nasal bleeding also will occur after getting up or after you shower. Oozing from your mouth is expected given the many teeth that were removed PAIN: Is best controlled by the medications recommended. They are most effective when taken before the local anesthesia diminishes and normal sensation returns to the area. Do not take pain pills on an empty stomach. Narcotic pain medication such as Vicodin or Percocet may cause nausea, vomiting, drowsiness, dizziness, itching or constipation. If these side effects occur, discontinue the medication. You may take an alternative over the counter pain medication (Tylenol or Motrin) as necessary or call our office for assistance. SWELLING: May occur immediately and increase gradually over 24-48 hours. Swelling from the surgical procedure will maximize at 48-72 hours. Ice packs applied externally to the area at 20 minute intervals throughout the day of surgery may help control swelling, but only use them if advised to by our office. Sleeping with the head of bed elevated above the level of the heart for the first two post-operative nights may tend to lessen swelling. NAUSEA: May result from a general anesthetic or the drugs prescribed for pain. Drinking a small glass of a carbonated beverage will generally control mild nausea. If not controlled, call the office. The Zofran ODT may be used as instructed. DIET: Clear and full liquids only following surgery. Avoid hot, spicy foods. Do not smoke. Do not open your jaw very wide until instructed by Dr Ng ORAL HYGIENE: Should not be neglected. Use the Peridex rinse 2-3 x a day . Use salt water rinse also every 3-4 hours. with warm salt water after each meal beginning gently the night of surgery. Other mouth rinses can be used to keep your mouth clean you can buy in store. ACTIVITY: Should be restricted to a minimum for the first 7 -10 days. Strenuous work or exercise may promote bleeding. If you have had a general anesthetic or sedation, we must require that you be accompanied home by a responsible adult and an adult stays with you until recovered from the effects of the anesthesia. Under no circumstances are you to drive a car for at least 2-3 days FEVER: After surgery it is normal for the body temperature to be slightly elevated for 24 hours. SIDE EFFECTS: Such as an ear ache, temporary ache of adjacent teeth, restricted mouth opening, stretching or cracking at the corners of the mouth or discoloration of the skin may occur postoperatively. These are temporary conditions that will improve as healing progresses. As a result of the surgery your bite will feel off, this is normal. Your lower and upper lip will also feel numb as a result of the surgery; over time this will subside. EMERGENCIES: In case of profuse bleeding, uncontrolled pain, persistent nausea or abnormal elevation of temperature, if you have any questions about these instructions or your surgery please call our office Our goal is to make this procedure as safe and pleasant as possible. Email Dr. Ng---[email or web address]. Phone Dr. Ng after hours and weekends [phone] Pending Studies at Discharge: No Stand-Alone Forms: My [employer], Smoking Cessation Medications and DC Order Prescriptions: Continued hydrocodone-acetaminophen 5-325 mg tablet 1 tab PO Q4H PRN (Reason: pain) Qty: 14 0RF chlorhexidine gluconate [Peridex] 0.12 % mouthwash 15 ml mucous membrane BID Qty: 473 0RF Rx Instructions: RINSE WITH 15 ML EVERY 8 HR HOLD FOR 30 SECONDS THEN SPLIT OUT No Action clindamycin HCl 300 mg capsule 300 mg PO TID 7 Days Qty: 21 0RF Discharge Orders: Discharge Order (Routine); Ordered 07/30/22 Ordered By: Joe Waldrop/Other Patient Handouts: ED Jaw Fracture Admission Data Admit Date/Time: 07/28/22 19:00 Attending Provider: Levi Nguyen Admit Provider: Roland Garcia Primary Care Provider: PCP,NO Other Providers: Joe Ng Other Interventions: Discharge Summary Assessment (RN) Last Done: 07/30/22 13:44 Supervising Physician Co-Signing Physician Notes Attending attestation Pt seen and examined in concert with Dr. Cornejo. In agreement with the documented findings as noted in the resident documentation with any exceptions or ad ditions as noted here. Significant improvement in pain and function following surgical repair, now tolerating PO pain medication with rare IV PRN. VS, nursing notes, consultations reviewed. On examination, S1/S2 nl RRR no MCG. CTAB. Abd NT/ND BS+ve Jaw fracture with trauma s/p repair - has follow up w/ Dr. Ng upcoming. Continue PO pain management. After discussion w/ OMFS, will continue clindamycin as noted. Else see resident documentation as noted. Total attending physician time spent with this patient's care on the day of discharge: 35 minutes. Resident Activity Tracking Resident Involvement: Resident Care Provided Care Provided: Adult [facility]
--- NOTE | 2022-08-02 21:49 | Operative Report ---
PG Post Operative Report Pre & Post Diagnosis Operation Date: 07/29/22 10:50 Pre-Op Diagnosis: Extensive Facial Injury Post-Op Diagnosis: Extensive Facial Injury I identified the patient and participated in the time-out.: Yes Procedure Operation Date: 07/29/22 10:50 Actual Procedures p Open Reduction Lower Jaw Fracture(Bilateral) - Joe Ng DMD s Multiple Teeth Extraction(Not Applicable) - Joe Ng DMD Surgeon Joe Ng, [employer] none Estimated Blood Loss 100 Findings Consistent with Post-Op Diagnosis Specimens none Drains none Anesthesia Type General Complications none Indications kicked in the face by horse Description of Procedure Pre-op= Bilateral fractures of the lateral lower jaw with multiply fractured teeth/alveoplasty to gain soft tissue closure ICD 10 S02.600D [id number] L51.12 ICD 10 S02.5XX2 CPT 29874-------mmhdqq of complex mandibular fracture with internal fixation CPT 92557-------kyreveuyoaf to adjust bone to obtain soft tissue oral closure Lower right and left sides [id number] x 12------extractions of fractured teeth as a result of the accident tooth # 6,11,12,21,22,23,24,25,26,27,28 Once cleared for surgery general anesthesia was achieved, the eyes were protected by the anesthesia dept criteria.. A time out was take for patient ID, antibiotics, equipment and position verification once all agreed the procedure began. Local anesthesia was given into each area using Marcaine with a vasoconstrictor ( 1.8 ml per site). A throat pack was placed after the oral cavity was irrigated with saline. Once a surgical level of anesthesia was obtained and the local anesthesia was given time for the blocks the surgery was started. I turned my attention to the upper jaw. All of the patients upper and lower teeth were fractured beyond repair and required extraction. There were many fragments in the mouth from the impact of the horse`s hoof striking the anterior aspect of the mouth Upper teeth multiply fractured fragments (extraction 3 teeth and alveoplasty) An Incision was made over the tuberosity on the right side and extended all the way around the arch to the left posterior. The full thickness flap was reflected, bone removed with a rongeur, the fractured tooth/root fragments were visualized. Now using a dental forceps, rongeur and elevators I was able to remove all the upper teeth/roots. The following teeth were removed 6,11,12 and fragments of teeth. The bone was trimmed as well as the soft tissues. Closure was obtained with a 2-0 chromic after all the sockets were curetted and irrigated. There was no sinus involvement. Lower teeth multiply fractured fragments 21,22,23,24,25,26,27,28 (extraction 9 teeth and alveoplasty) The full thick Muco-periosteal flap was made on the external oblique ridge to avoid the lingual nerve. The flap was reflected to expose the fractured lower teeth, bone and fractured segments. The teeth/roots were very carefully removed to avoid any further displacement of the fractured segments. I now removed all the fractured teeth/roots with a 301 elevator, dental forceps and rongeurs. To allow for the soft tissue closure an alveoplasty was necessary to prevent infection of the bilateral mandibular fractures and bone plates. Once all the teeth were removed I smoothed and recontoured the remaining lower ridge, the sockets were curetted and irrigated. An alveoplasty was preformed, the nerve was intact, there was no bleeding. The bone was trimmed, smoothed and the flap was closed with a continues 2-0 chromic sutures. A water tight closure of the intraoral soft tissue was accomplished. When all the teeth were removed I inspected the sites to insure all bleeding was controlled and the sites were well sutured. I now replaced the throat pack and suctioned the throat. At this time I re gloved and re prepped the face and placed new drapes as I was now ready to start the extraoral open reduction and plate fixation of the bilateral anterior mandibular fracture. Opened reduction of the bilateral mandibular fracture with direct plate fixati on. I reprepped and irrigated then turned my attention to the inferior boarder of the lower jaw. There was a laceration on the left side already. The laceration was approximately 2 cm long. It was very irregular and deep to the muscle. The muscle was cut to allow the open reduction and expose the inferior border and mental area of the chin. Extending the the laceration I used an electrocautery instrument and cauterized any bleeders. The wound was irrigated and scrubbed. I then inspected the fractured boneon the left side there was a complete fracture with displacement. I debrided and irrigated the fracture segments. As there were no teeth present I aligned the segments to the best anatomic position and using a KLS Filippo 2.4 mm 4 holed plate I was able to get a very stable reduction across the fracture line. The area was now packed and I turn my attention to the right side. A 15 blade was used to make a 2 cm incision thought the skin, I then used an electrocautery instrument cut through the muscles and periosteum and cauterized any bleeders-- the fractured bone was now encountered. I then inspected the fractured boneon the right side there was a complete fracture with slight displacement. I debrided and irrigated the fracture segments. As there were no teeth present I aligned the segments to the best anatomic position and using a KLS Filippo 2.0 mm 4 holed plate I was able to get a very stable reduction across the fracture line. I now irrigated both sites and used Peridex intra orally to insure that I had excellent oral soft tissue closure. The closure of the laceration was now started using 4-0 Vicryl suture to line up the deep muscles and periosteum, subcutaneous sutures were positioned with a 5-0 Vicryl and then finally the skin was closed with a combination of 6 and 5-0 nylon suture. A very nice cosmetic closure of this irregular laceration was achieved. At this time there was excellent stability of the fractured segments, good al ignment was noted and the intraoral soft tissue was well closed. Bilateral gauze pressure dressings were placed. All instrument and sponge count was correct. the patient was allowed to awake from the anesthesia. Once full awake the anesthesia tube was removed and the patient was taken to the recovery room with all vital sign stable. The patient tolerated the surgery very well. I will follow the patient in my office, Rx and instructions will be given upon discharge. I attest to the content of the Intraoperative Record and any orders documented therein. Any exceptions are noted below.
== END 2022-07-30 13:58 | disposition home or self-care (01) | DRG 159 ==
LOC: ED 14:45 → SUATTDRO 19:00 → 2N 19:00
DX: S02.609A Fracture of mandible, unspecified, initial encounter for closed fracture; Z88.0 Allergy status to penicillin; W55.82XA Struck by other mammals, initial encounter; S02.5XXA Fracture of tooth (traumatic), initial encounter for closed fracture; F17.210 Nicotine dependence, cigarettes, uncomplicated; S01.81XA Laceration without foreign body of other part of head, initial encounter